=== PATIENT | female | born 1980 | race Caucasian/White ===

== ENCOUNTER 2018-01-24 12:13 | Emergency (ER) | payer BC, SELFPAY ==
[2018-01-24 12:15] VITALS: BP 158/69; PULSE 80; RESP 17; TEMP 36.5; O2SAT 100; BMI 41.0
--- NOTE | 2018-01-24 12:27 | ED.VISSUMM ---
- ER Visit Summary Date of Service: 01/24/18 Chief Complaint: Patient's, chest pain, nonproductive cough etc. History of Present Illness: The patient is a 37 F who presents with acute viral-like symptoms that started 3 days ago. She denies headache. Denies photophobia or eye pain. Denies neck pain or stiffness. She does complain of mild sore throat and nasal congestion with postnasal drainage. She does have a cough which is nonproductive. She is a smoker. She does complain of palpitations and intermittent chest pain with coughing. She denies nausea, vomiting diarrhea. She denies dysuria, frequency, urgency hematuria. She denies leg pain, swelling discoloration. Please see written note for complete detail. Physical Examination: Next field blood pressure is elevated 158/69. She is not febrile nor is she hypoxic. She appears in no distress. Head is atraumatic nor cephalic. Pupils equal round reactive. TMs are normal. Nares patent with nasal congestion. Posterior pharynx with mild erythema. Trach is midline. Is no stridor. No cervical lymphadenopathy. Heart is regular without murmur, gallop or rub. S1 and S2 are normal. Lungs are clear to auscultation with good movement of air bilaterally. Abdomen minimal tenderness. Lower extremity exam is unremarkable: There is no asymmetry, swelling, discoloration, leg vein distention, palpable cords or tenderness along the distribution of the deep venous system. Emergency Department Course and Treatment: Patient was told he has an upper respiratory infection. These are caused from viruses; therefore, antibiotics are not indicated. She was told since she is a smoker she may have a cough up to 4 weeks. Treatment Plan: Symptomatic Disposition: Discharge to home with appropriate home-going instructions Impression: Acute viral upper respiratory infection This note was generated with CR2 dictation software. It may contain incorrect words, spelling, and punctuation that were not noted in review of the chart prior to signing ED Disposition - Plan for ED Patient: Disposition: Home or Assisted Living Chief Complaint: Cough Instructions: ED URI Viral Referrals: Parker Cummings III, MD [Primary Care Provider] - 10-14 Days if not better
[2018-01-24 12:28] VITALS: O2SAT 99
--- NOTE | 2018-01-24 12:33 | ED.DCSUM_ITS ---
- ER Visit Summary Date of Service: 01/24/18 Chief Complaint: Patient's, chest pain, nonproductive cough etc. History of Present Illness: The patient is a 37 F who presents with acute viral- like symptoms that started 3 days ago. She denies headache. Denies photophobia or eye pain. Denies neck pain or stiffness. She does complain of mild sore throat and nasal congestion with postnasal drainage. She does have a cough which is nonproductive. She is a smoker. She does complain of palpitations and intermittent chest pain with coughing. She denies nausea, vomiting diarrhea. She denies dysuria, frequency, urgency hematuria. She denies leg pain, swelling discoloration. Please see written note for complete detail. Physical Examination: Next field blood pressure is elevated 158/69. She is not febrile nor is she hypoxic. She appears in no distress. Head is atraumatic nor cephalic. Pupils equal round reactive. TMs are normal. Nares patent with nasal congestion. Posterior pharynx with mild erythema. Trach is midline. Is no stridor. No cervical lymphadenopathy. Heart is regular without murmur, gallop or rub. S1 and S2 are normal. Lungs are clear to auscultation with good movement of air bilaterally. Abdomen minimal tenderness. Lower extremity exam is unremarkable: There is no asymmetry, swelling, discoloration, leg vein distention, palpable cords or tenderness along the distribution of the deep venous system. Emergency Department Course and Treatment: Patient was told he has an upper respiratory infection. These are caused from viruses; therefore, antibiotics are not indicated. She was told since she is a smoker she may have a cough up to 4 weeks. Treatment Plan: Symptomatic Disposition: Discharge to home with appropriate home-going instructions Impression: Acute viral upper respiratory infection This note was generated with Withings dictation software. It may contain incorrect words, spelling, and punctuation that were not noted in review of the chart prior to signing ED Disposition - Plan for ED Patient: Disposition: Home or Assisted Living Chief Complaint: Cough Instructions: ED URI Viral Referrals: Parker Cummings III, MD [Primary Care Provider] - 10-14 Days if not better
[2018-01-24 12:41] VITALS: BP 138/72; PULSE 71; RESP 16; O2SAT 99
== END 2018-01-24 12:44 | disposition home or self-care (01) ==
LOC: ED 12:42
PROVIDERS: Emergency Provider Emergency Medicine; Family Provider Family Medicine; PCP Family Medicine
DX: J06.9 Acute upper respiratory infection, unspecified (principal); R03.0 Elevated blood-pressure reading, without diagnosis of hypertension; E66.9 Obesity, unspecified; F17.200 Nicotine dependence, unspecified, uncomplicated
CPT/HCPCS: 99282

== ENCOUNTER → 2018-02-02 08:26 | Outpatient (CLI) | payer BC, SELFPAY | PROVIDERS: Family Provider Family Medicine; PCP Family Medicine; Visit Provider Nurse Practitioner | DX: R00.2 Palpitations (principal) | CPT/HCPCS: 93225; 93226 ==

== ENCOUNTER → 2021-02-03 08:57 | Outpatient (CLI) | payer BC, SELFPAY ==
[2021-01-27 11:05] VITALS: BMI 40.5
--- NOTE | 2021-02-03 08:59 | US_ITS ---
STUDY: ULTRASOUND BREAST - LEFT REASON FOR EXAM: Female, 40 years old. Palpable lump left breast. TECHNIQUE: Axial and longitudinal images of the LEFT breast were performed with a high resolution ultrasound transducer. # OF IMAGES: 24 COMPARISON: Comparison is made with prior mammogram done earlier in the day. FINDINGS: LEFT Breast: The inferior aspect of the left breast was examined by ultrasound. No palpable lump is felt at this time. No sonographic abnormality is seen. US/Breast Limited Unilateral IMPRESSION: No sonographic abnormality is seen. ASSESSMENT CATEGORY: BIRADS Category 1: Negative. A letter regarding these results will be sent to the patient by the facility within 30 days. Electronically Signed: Eduar Raya MD at 13:23 EDT , Service support ,
--- NOTE | 2021-02-03 08:59 | BI_ITS ---
MAMMOGRAPHY - BILATERAL DIAGNOSTIC REASON FOR EXAM: Female, 40 years old. 2 week history of left breast lump. PERTINENT HISTORY: Grandmother with breast cancer. TECHNIQUE: Digital bilateral breast sarah (3D mammographic acquisition) in the CC and MLO projections. 2-D mediolateral oblique (MLO) and craniocaudad (CC) views of both breasts were obtained. CAD: Full Field Digital Mammography with Computer Added Detection was performed. COMPARISON: None. Baseline examination. FINDINGS: Breast Composition: The breasts are heterogeneously dense, which may obscure small masses. There are no dominant masses or suspicious calcifications. There is asymmetry of breast tissue were more breast tissue is seen in the retroareolar region of the left breast as compared to the right side. With the patient''s history of a palpable lump, correlation with ultrasound is recommended. No other significant abnormalities are identified. BI/DIAG MAMM W/CAD, BILAT IMPRESSION: Negative diagnostic mammogram. Asymmetry of breast tissue were more breast tissue is seen in the left breast as compared to the right side. Correlation with ultrasound is recommended. ASSESSMENT CATEGORY: BIRADS Category 0: Incomplete. Need additional imaging evaluation. A letter regarding these results will be sent to the patient by the facility within 30 days. Approximately 10% of breast cancers are not detected by mammography. A normal mammogram should not delay biopsy of a clinically suspicious abnormality. Electronically Signed: Eduar Raya MD at 10:17 EDT , Service support ,
== END ==
LOC: OPBI 08:58
PROVIDERS: PCP Family Medicine; Referring Provider Nurse Practitioner Women's Health; Visit Provider Nurse Practitioner Women's Health
DX: N63.20 Unspecified lump in the left breast, unspecified quadrant (principal); Z80.3 Family history of malignant neoplasm of breast
CPT/HCPCS: 76642; 77066

== ENCOUNTER → 2021-02-11 | Outpatient (CLI) | payer BC, SELFPAY ==
[2021-02-11 08:03] VITALS: BMI 40.5
[2021-02-16 12:29] LABS: HPV APTIMA, High Risk Negative (Negative)
== END | disposition home or self-care (01) ==
LOC: LABSPEC 12:19
PROVIDERS: PCP Family Medicine; Referring Provider Nurse Practitioner Women's Health; Visit Provider Nurse Practitioner Women's Health
DX: Z12.4 Encounter for screening for malignant neoplasm of cervix (principal)
CPT/HCPCS: 87624; 88175; G0145

== ENCOUNTER → 2022-02-05 | Outpatient (CLI) | payer BC, SELFPAY ==
[2022-02-05 11:33] LABS: Absolute Lymphocyte Count 2.29 X10^3/uL (0.83-4.51); Basophil# 0.08 X10^3/uL; Basophil% 0.8 % (0-1); Hematocrit 38.7 % (37-47); Hemoglobin 12.6 g/dL (12.0-15.0); Lymphocyte # 2.29 X10^3/ul (0.83-4.51); Lymphocyte % 22.5 % (19-41); Mean Corp Hgb Conc 32.6 g/dL (32-36); Mean Corpuscular Hgb 29.4 pg (27.0-32.0); Mean Corpuscular Volume 90.4 fL (81-99); Mean Platelet Vol. 9.9 fl (6.2-12.0); Monocyte# 0.57 X10^3/uL; Monocyte% 5.6 % (0-10); NRBC Flagged by Analyzer 0 % (0-5); Neutrophil # 6.98 X10^3/uL (2.7-7.7); Neutrophil % 68.6 % (47-70); Platelet Count 323 K/mm3 (150-450); RBC Distribution Width CV 13.6 % (11.6-14.6); RBC Distribution Width SD 44.9 fl (35.1-43.9); Red Blood Count 4.28 M/mm3 (4.2-5.4); White Blood Count 10.2 K/mm3 (4.4-11.0)
[2022-02-05 12:06] LABS: Thyroid Stim Hormone (TSH) 1.57 uIU/mL (0.358-3.74)
== END | disposition home or self-care (01) ==
LOC: PAVLAB 11:16
PROVIDERS: Referring Provider Nurse Practitioner Women's Health; Visit Provider Nurse Practitioner Women's Health
DX: N93.9 Abnormal uterine and vaginal bleeding, unspecified (principal); Z13.29 Encounter for screening for other suspected endocrine disorder
CPT/HCPCS: 36415; 84443; 85025

== ENCOUNTER → 2022-02-12 | Outpatient (CLI) | payer BC, SELFPAY ==
--- NOTE | 2022-02-12 07:52 | BI_ITS ---
MAMMOGRAPHY - BILATERAL SCREENING REASON FOR EXAM: Female, 41 years old. Routine annual screening examination. PERTINENT HISTORY: Grandmother with breast cancer. TECHNIQUE: Digital bilateral breast mark (3D mammographic acquisition) in the CC and MLO projections. 2-D mediolateral oblique (MLO) and craniocaudad (CC) views of both breasts were obtained. CAD: Full Field Digital Mammography with Computer Added Detection was performed. COMPARISON: Comparison is made with prior study dated 02/03/2021. FINDINGS: Breast Composition: The breasts are heterogeneously dense, which may obscure small masses. There are no dominant masses or suspicious calcifications. Stable asymmetry of breast tissue with more breast tissue is seen in the retroareolar region of the left breast as compared to the right side. No other significant abnormalities are identified. There has been no significant change since the prior study. BI/SCRN MAMM (CAD)W/MARK BILAT IMPRESSION: Stable bilateral screening mammogram. Yearly follow-up mammogram recommended. (A) ASSESSMENT CATEGORY: BIRADS Category 2: Benign. A letter regarding these results will be sent to the patient by the facility within 30 days. Approximately 10% of breast cancers are not detected by mammography. A normal mammogram should not delay biopsy of a clinically suspicious abnormality. [id number] Electronically Signed: Eduar Raya MD at 8:53 EDT ,
--- NOTE | 2022-02-12 07:52 | US_ITS ---
STUDY: ULTRASOUND TRANSVAGINAL CLINICAL: Female, 41 years old. aub TECHNIQUE: Transvaginal COMPARISON: None. FINDINGS: Normal uterine size measuring 8.8 cm in maximal craniocaudal dimension. There are no myometrial masses. Normal endometrial thickness measuring 1.32 cm. There are no endometrial masses, and there is no fluid in the endometrial cavity. Normal uterine cervix. There is a cyst measuring 1.80 cm Normal right ovary, measuring cm. There are multiple follicles without a dominant cyst. Normal left ovary, measuring cm. There are multiple follicles without a dominant cyst. There is no free fluid in the pelvis. Polycystic ovary disease: No. US/Transvaginal Non- IMPRESSION: No acute findings. Electronically Signed: Jerson Peoples MD at 0:01 EDT ,
== END | disposition home or self-care (01) ==
PROVIDERS: Visit Provider Nurse Practitioner Women's Health
DX: Z12.31 Encounter for screening mammogram for malignant neoplasm of breast (principal); N93.9 Abnormal uterine and vaginal bleeding, unspecified
CPT/HCPCS: 76830; 77063; 77067

== ENCOUNTER → 2022-07-23 | Outpatient (CLI) | payer BC, SELFPAY ==
--- NOTE | 2022-07-23 12:48 | VDLE_ITS ---
Reason For Study: LEG PAIN AND SWELLING RIGHT LEFT CFV is compressible, spontaneous, phasic, GSV appears non-compressible with competent and demonstrates normal intraluminal echoes. No flow noted in color augmentation. or pulsed wave doppler. S/P EVLA procedure. Procedure CFV is compressible, spontaneous, phasic, This is a venous duplex using B-mode, color competent, and demonstrates normal flow and spectral Doppler. augmentation. Exam performed in department. FV is compressible, spontaneous, phasic, The exam was diagnostic. competent and demonstrates normal A preliminary report was called and/or faxed augmentation. to Dr. Rodríguez. POP V is compressible, spontaneous, phasic, competent and demonstrates normal augmentation. T/P Trunk is compressible. PTV is compressible. LT PerV is compressible. VL/Venous Duplex US, Unilateral Interpretation Summary Deep veins of the left lower extremity are patent and compressible segmentally. There is no evidence of left lower extremity deep vein thrombosis. Valvular competence appears intac t within the proximal deep venous system on the left . The left great saphenous vein is occluded and non-compressible, consistent with a recent endothermal ablation procedure. Ordering Physician: Mickey Rodríguez Referring Physician: Mickey Rodríguez Performed By: Korey Mondragon, RVT
== END | disposition home or self-care (01) ==
LOC: CVS 12:47
PROVIDERS: Referring Provider Surgery; Visit Provider Surgery
DX: M79.602 Pain in left arm (principal)
CPT/HCPCS: 93971

== ENCOUNTER → 2022-11-03 | Outpatient (CLI) | payer BC, SELFPAY | END | disposition home or self-care (01) | LOC: LABSPEC 14:28 | PROVIDERS: Visit Provider Obstetrics & Gynecology | DX: N93.9 Abnormal uterine and vaginal bleeding, unspecified (principal) ==

== ENCOUNTER → 2022-11-04 | Outpatient (CLI) | payer BC, SELFPAY ==
--- NOTE | 2022-11-03 | EMB_PTH ---
PATIENT: MAYDA CRAIG LOC: [facility]#:[id number] AGE/SX: 41/F ROOM: RE11/04/[address]: Dr. Carley Javed DO : 1980 BED: DIS: 11/04/2022 SPEC #: [id number] RECD: 11/03/22 14:23 STATUS: SOFIA SEEMA #: [id number] NICOLAS: 11/03/22 00:[address]: Carley Javed DEPT: SURGICAL PATHOLOGY RECD BY: Ed Jose ENTERED: 11/04/22 11:02 SP TYPE: ENDOM BX/C HERBERT DR: No Primary Care Phys Tissues: Endometrium, NOS Procedures: Surgery Specimen Level IV HEADER OPERATION: Endometrial biopsy PRE-OP DIAGNOSIS: Abnormal uterine bleeding TISSUE SUBMITTED: Endometrial lining MICROSCOPIC DIAGNOSIS Endometrium, biopsy: Secretory endometrium. AM:yolanda 11/05/2022 MICROSCOPIC DESCRIPTION Slides are reviewed. GROSS DESCRIPTION Received is one container labeled with the patient's name and not further designated. The specimen consists of multiple irregular fragments of jay soft tissue that in aggregate measure 2.5 x 2 x 0.2 cm. The specimen is totally submitted in one cassette. / SJ:yolanda 11/04/2022 TC:5 CPT: 95249
[2022-11-04 10:54] LABS: Absolute Lymphocyte Count 2.31 X10^3/uL (0.83-4.51); Absolute Neutrophil Count 6.6 X10^3/uL (2.0-7.7); Basophil# 0.05 X10^3/uL; Basophil% 0.5 % (0-1); Hematocrit 35.3 % (37-47); Hemoglobin 10.6 g/dL (12.0-15.0); Lymphocyte # 2.31 X10^3/ul (0.83-4.51); Lymphocyte % 23.6 % (19-41); Mean Corpuscular Hgb 24.8 pg (27.0-32.0); Mean Corpuscular Volume 82.7 fL (81-99); Mean Platelet Vol. 9.3 fl (6.2-12.0); Monocyte# 0.62 X10^3/uL; Monocyte% 6.3 % (0-10); NRBC Flagged by Analyzer 0 % (0-5); Neutrophil # 6.56 X10^3/uL (2.7-7.7); Neutrophil % 67.1 % (47-70); Platelet Count 380 K/mm3 (150-450); RBC Distribution Width CV 14.2 % (11.6-14.6); Red Blood Count 4.27 M/mm3 (4.2-5.4); White Blood Count 9.8 K/mm3 (4.4-11.0)
== END | disposition home or self-care (01) ==
LOC: PAVLAB 10:40
PROVIDERS: Referring Provider Obstetrics & Gynecology; Visit Provider Obstetrics & Gynecology
DX: N93.9 Abnormal uterine and vaginal bleeding, unspecified (principal)
CPT/HCPCS: 36415; 85025; 88305

== ENCOUNTER → 2022-12-16 | Outpatient (CLI) | payer BC, SELFPAY | END | disposition home or self-care (01) | PROVIDERS: Referring Provider Obstetrics & Gynecology; Visit Provider Obstetrics & Gynecology | DX: Z01.818 Encounter for other preprocedural examination (principal); R30.0 Dysuria | CPT/HCPCS: 36415; 83735; 85027; 86850; 86900; 86901; 87086; 87088 ==

== ENCOUNTER 2022-12-28 09:34 | Day surgery (SDC) | payer BC, SELFPAY ==
[2022-12-16 11:28] LABS: Hematocrit 36.8 % (37-47); Hemoglobin 11.2 g/dL (12.0-15.0); Mean Corp Hgb Conc 30.4 g/dL (32-36); Mean Corpuscular Hgb 23.6 pg (27.0-32.0); Mean Corpuscular Volume 77.5 fL (81-99); Mean Platelet Vol. 9.4 fl (6.2-12.0); Platelet Count 397 K/mm3 (150-450); RBC Distribution Width CV 15.6 % (11.6-14.6); RBC Distribution Width SD 43.4 fl (35.1-43.9); Red Blood Count 4.75 M/mm3 (4.2-5.4); White Blood Count 9.2 K/mm3 (4.4-11.0)
[2022-12-16 11:46] LABS: Magnesium 2.1 mg/dL (1.6-2.6)
[2022-12-28] VITALS (8 sets, daily range): BP systolic 116–153; BP diastolic 62–89; PULSE 60–79; RESP 14–28; TEMP 36.4–37.1; O2SAT 99–100; BMI 42.3
[2022-12-28] MEDS: Lactated Ringers 1,000 ML 40 ML IV (10:00)
--- NOTE | 2022-12-28 10:03 | PCM.HP.BLA ---
History and Physical Date of Admission: 12/28/22 Intake Vital Signs ? 12/08/2307:00 12/08/2307:07 Height 5 ft 4 in 5 ft 4 in Weight: 242 lb ? BMI 41.5 ? BP 125/71 H ? Intake Visit Reasons:?pre-op Clothing Examiner Required: No Is patient in pain?: No Allergies No Known Allergies Allergy (Verified 12/07/22 08:06) Medications NK? 11/03/22 [History Confirmed 12/07/22] Post menopausal: No Patient : No : No [facility] Medical History? History of femur fracture Surgical History? History of endometrial ablation History of salpingectomy History of surgery on arm History of tubal ligation Family History? Mother Diabetes HypertensionGrandmother Breast cancer Hypertension Social History? household members:? spouse and children number of children:? 3 current occupational status:? employed current occupation:? [employer] history of recent travel:? No sexually active:? Yes Smoking Status:? Current every day smoker alcohol intake:? never substance use type:? does not use what type of physical activity do you participate in:? walking frequency:? 3-4 times per week seatbelt use:? always do you feel safe at home:? Yes additional social history:? - Sam REYNAGA pre-op Details: MAYDA CRAIG is a 42 year old who presents for a pre-op exam. She is a? who presents for discussion about heavy menses. She has recently completed a course of aygestin and bleeding has stopped x 3 days. She states that typically She will bleed clots and at times will last up to 4 weeks on end. in 12 months I have bled 7 months straight. She complains of fatigue often. She has a history of uterine ablation that did not work when she was 32 years old. She also had an essure procedure followed by salpingectomy for pain with Dr. Duenas at [facility]. She is now interested in hysterectomy. her children were all born vaginally. ultrasound shows an 8 cm uterus with a 1.5 cm lining. We have discussed treatment options and she would like to proceed with hysterectomy at this time. History ? ? ? 3 ? Elective abortions ? Hx Para ? ? ? 3 ? Spontaneous abortions ? Hx # Term Pregnancies ? Ectopic pregnancies ? Hx # Pregnancies ? Multiple births ? # of living children ? ? ? 3 Past Pregnancies Del. Date Name GA/Weeks Outcome Route Bth Weight Infant Gen Labor Lgth Anesthesia Del Locatn Provider FOB Unknown Mariam ? 2003 ? Unknown Andrew? 2005 ? Unknown Rashel? 2012 ? ROS Const ROS Unobtainable: All systems reviewed & are unremarkable except as noted in H Resp Resp: Reports system reviewed and no additional complaints, except as documented; Denies cough GI GI: Reports as per HPI Psych Psych: Reports system reviewed and no additional complaints, except as documented Exam Const General: cooperative, healthy appearing, comfortable and no acute distress Resp Effort & Inspection: normal respiratory effort Skin General: no rashes or lesions noted Psych Appearance: grossly normal Speech and Movement: speech and movement normal Coding Level of Care Code Off vis,est,level 4 Diagnoses Abnormal uterine bleeding (AUB)? N93.9 History of tubal ligation? Z98.51 Varicose veins of both lower extremities? I83.93 Superficial thrombophlebitis? I80.9 Assessment and Plan Assessment and Plan (1) Abnormal uterine bleeding (AUB): ?Status:?Acute ?Comment: labs/US WNL. failed IUD; failed ablation. Failed aygestin and eliane. JV appt to discuss hysterectomy ?Plan: After discussing the patient's diagnosis and treatment plan options, patient wishes to proceed with surgical management. We will proceed with a robotic approach to minimize complications due to central obesity and lack of uterine descent. ? I have discussed with the patient the risks, benefits, and alternatives of the procedure which include but are not limited to risks of anesthesia, bleeding, infection, possible damage to bowel, bladder, or surrounding vasculature which could lead to additional surgery to evaluate any complications.? Patient agrees to procedure and wishes to proceed.? ACOG/uptodate references given for additional information regarding procedure.? (2) History of tubal ligation: ?Status:?Acute (3) Varicose veins of both lower extremities: ?Status:?Acute (4) Superficial thrombophlebitis: ?Status:?Acute
[2022-12-28] MEDS: Magnesium 1 GM over 15 mins IV (10:10)
[2022-12-28] MEDS: dexAMETHasone 10 MG/ML Vial 8 MG IV (10:15)
[2022-12-28] MEDS: Celecoxib 200 MG Capsule 400 MG PO (10:16)
[2022-12-28] MEDS: Acetaminophen 500 MG Tablet 1000 MG PO (10:17)
[2022-12-28] MEDS: Phenazopyridine 95 MG Tablet 190 MG PO (10:17)
[2022-12-28] MEDS: Gabapentin 600 MG Tablet PO (10:17)
[2022-12-28 10:30] LABS: Bedside Glucose 92 mg/dL (74-106)
--- NOTE | 2022-12-28 11:40 | HYST_PTH ---
PATIENT: MAYDA CRAIG LOC: [facility] U#:[id number] AGE/SX: 42/F ROOM: RE12/28/[address]: Dr. Carley Javed DO : 1980 BED: DIS: 12/28/2022 SPEC #: [id number] RECD: 12/28/22 16:32 STATUS: SOFIA [place] #: [id number] NICOLAS: 12/28/22 11:[address]: Carley Javed DEPT: SURGICAL PATHOLOGY RECD BY: Laura Hart ENTERED: 12/29/22 09:20 SP TYPE: HYSTERECT OT DR: No Primary Care Phys Tissues: Uterus, NOS Procedures: Surgery Specimen Level V HEADER OPERATION: ERAS, lap robotic hysterectomy, cystoscopy PRE-OP DIAGNOSIS: Abnormal uterine bleeding TISSUE SUBMITTED: Uterus and cervix MICROSCOPIC DIAGNOSIS Uterus, hysterectomy: Cervix ? nabothian cysts, squamous metaplasia and mild chronic inflammation. Endometrium ? proliferative endometrium. Myometrium ? focal superficial adenomyosis. AM:yolanda 12/30/2022 MICROSCOPIC DESCRIPTION Slides are reviewed. GROSS DESCRIPTION Received in fixative is one container labeled with the patient's name and designated uterus and cervix. The specimen consists of a hysterectomy specimen consisting of uterus with cervix weighing 115 gm and measuring 9.0 x 6.0 x 4.5 cm. The serosal surface is jay, glistening. The ectocervical mucosa is unremarkable. The external os is oval and patulous in contour. The endocervical canal measures 3.0 cm in length and the endocervical mucosa is jay, glistening and unremarkable. Sections of the cervix reveal multiple cysts filled with jay, mucoid material. The triangular endometrial cavity measures 4.0 cm in length and up to 2.0 cm in width. The endometrium is jay, glistening without any mass lesion and measures up to 0.2 cm in thickness. Sections of the uterine wall do not reveal any mass lesion and measures up to 2.5 cm in thickness. [employer] sections are submitted in six cassettes as follows: 1?- anterior cervix, 2 - posterior cervix, 3 & 4 - anterior uterine wall, 5 & 6 - posterior uterine wall. / SJ:yolanda 12/29/2022 TC:5 CPT: 13171
--- NOTE | 2022-12-28 12:34 | DCINST_ITS ---
Discharge Instructions Diet Discharge Diet: No restrictions Activity May resume sexual activity in: 6 weeks Weight Bearing Status: Full weight bearing Dressing / Incision Call your doctor if your incision/area has: Continuous Slow Oozing, Sudden Increased Bleeding, Increased Pain/ Swelling, Increased Redness and Foul Smelling Discharge Call your doctor if you observe: Fever of 101 or Higher, Using more than 1 pad per hour, Shortness of breath, Chest pain and Uncontrolled pain Suture Line Care: Avoid Pulling/Pushing and Avoid Pinching/Bending Remove Dressing in: 1 week (if present) Cleanse incision/area with: Soap & Water and Keep Dressing Clean & Dry Follow Up Care Please Follow Up With: Carley Javed DO When: Call to make an appointment with your doctor for a postop visit in 2 and 6 weeks Test Results: Test results from this visit will be discussed in further detail at your follow- up appointment, if applicable. Discharge Plan Admission Primary Reason for Your Visit: hysterectomy Attending Provider: Carley Javed Primary Care Provider: Care Physician,Kristen Primary Discharge Orders/Prescriptions Prescriptions: New oxycodone-acetaminophen [Percocet] 5-325 mg tablet 1 tab PO Q4H PRN (Reason: pain) 7 Days Qty: 30 0RF Rx Instructions: 1-2 tabs q 4 hrs as needed for pain naproxen 500 mg tablet 500 mg PO BID PRN (Reason: pain) Qty: 30 0RF Referrals / Follow Up: Care Physician,No Primary [Primary Care Provider] - Disposition Disposition (needs filled in before D/C Order can be placed): Home, Self Care
[2022-12-28] MEDS: Cefazolin 2 GM in 0.9% Normal Saline 100 ML IV (14:00)
[2022-12-28] MEDS: Ondansetron 4 MG/2 ML Vial IV (14:32)
[2022-12-28] MEDS: Bupivacaine 0.25% 30 ML Vial (15:00)
--- NOTE | 2022-12-28 15:58 | PCM.OP.BLANK ---
Problems Associated Problem List Diagnoses (1) Abnormal uterine bleeding (AUB): Operative Report Date of Procedure: 12/28/22 Preoperative diagnosis:pelvic pain, menorrhagia, obesity Postoperative diagnosis: pelvic pain, menorrhagia, obesity Procedure: Total robotic hysterectomy and cystoscopy Surgeon: Dr. Carley Javed DO Assistant Product Manager: Janay DE LEON, Ross DE LEON Anesthesia: General endotracheal intubation Estimated blood loss: 30cc Urine output:200cc Drains: None Implanted material: None Complications: None Findings: 10 cm size uterus, normal appearing ovaries and tubes. On exploration of the abdominal cavity the uterus, adnexa, bowel, and liver were found to be normal with exception of endometriosis on the left ovary, which was adherent to the posterior uterine wall. There was also presence of a right essure coil Cystoscopy showed no evidence of leaking at approximately 250 cc of normal saline, positive ureteral orifices and jet flow are seen and no suture material was appreciated in the bladder. Specimens removed: Uterus and cervix Reason for surgery: This is a 42-year-old G3, P3 who presented to my office with history of pelvic pain and menorrhagia. She has failed many conservative measures. The planned procedure is for a robotic hysterectomy the risks benefits and alternatives were discussed with the patient the patient had a clear understanding of the procedure and a consent form was signed. Procedure: The patient was placed in the dorsal low lithotomy position and prepped and draped in the normal sterile fashion both abdominally and in the perineum. Her legs were placed in stirrups a Tamez catheter was inserted into the urethra without difficulty. A weighted speculum was placed in the vagina and a single-tooth tenaculum was used to grasp the anterior lip of the cervix. An Advincula uterine manipulator was inserted through the cervix without complication. It was then tied into place at the 2 and 10:00 locations on the cervix. Gloves were changed and attention was turned towards the abdomen. Approximately 23 cm above the pubic symphysis in the midline, and after Marcaine injection, a 8 mm incision was made. An 8 mm trocar was inserted through the laparoscope, then inserted into the abdomen under direct visualization using the laparoscope. Good abdominal placement was noted and no complications were appreciated. An air seal device was utilized to create pneumoperitoneum. At 12 cm lateral to the midline on the left and right sides 8 mm accessory ports were placed. Next a left upper quadrant 8 mm commissary assistant port site was placed. The patient was placed in steep Trendelenburg position. The robot was docked. The hysterectomy was initiated first by taking down the round ligament on each side using the vessel sealer device. The broad ligament was then and taken down using the vessel sealer device. The left ovary was bluntly and sharply dissected off the posterior uterine wall. Next the bladder flap was taken down without complication. This was done using monopolar cautery to the level of the cervical vaginal junction. After the bladder flap was created, uterine vessels were then isolated and cauterized using the vessel sealer device and EndoShears. At this point the uterine vessels were taken down further starting from the ascending branch, dissecting along the edges of the cervix to the level of the cervical vaginal junction with hemostasis appreciated. The cervical vaginal junction was then using monopolar cautery in a circumferential pattern across the superior aspect of the cervix. The specimen was delivered through the vagina and sent to pathology. The remaining vaginal cuff was then closed using a V- lock suture. This was performed in a running technique. Excellent hemostasis was obtained and good closure was noted. Irrigation was then performed. All operative sites were noted to be hemostatic. A cystoscopy was performed with a 70 degree cystoscope through the urethra into the bladder without complication. The bladder was instilled with approximately 250 cc of normal saline. Intraoperative images were made. Ureteral orifices and jets were identified. No suture material was appreciated in the bladder. The bladder was then drained and cystoscope was removed. The abdominal cavity was again examined using the laparoscope after the robot was undocked. All operative sites were noted to be hemostatic. The trochars were removed under direct visualization without complication and pneumoperitoneum was reduced. At this point the skin was then closed using 4-0 Monocryl subcuticular stitch and sealed with surgical glue. The patient tolerated the procedure well sponge lap and needle counts were correct x2 the patient was taken to the recovery room in stable condition. Multi Select Codes Urinary/Genital Urinary/Genital CPT Codes: 64641 Cystoscopy and 77730 TLH <250gr uterus
[2022-12-28] MEDS: HYDROcodone Bitartrate/Apap 5/325 Tablet PO (17:27)
== END 2022-12-28 18:44 | disposition home or self-care (01) ==
LOC: SDC 09:34 → AC 09:35
PROVIDERS: Anesthesiology; Referring Provider Obstetrics & Gynecology; Visit Provider Obstetrics & Gynecology
PROC: 0UT94ZZ Resection of Uterus, Percutaneous Endoscopic Approach (ICD-10-PCS; CPT 58570; principal; 2022-12-28 11:20)
DX: N80.03 Adenomyosis of the uterus (principal); Z68.41 Body mass index [BMI] 40.0-44.9, adult; N80.102 Endometriosis of left ovary, unspecified depth; N71.1 Chronic inflammatory disease of uterus; N88.8 Other specified noninflammatory disorders of cervix uteri; N87.9 Dysplasia of cervix uteri, unspecified; E66.9 Obesity, unspecified; F17.200 Nicotine dependence, unspecified, uncomplicated; Z98.51 Tubal ligation status
CPT/HCPCS: 58570; S2900; 00840; 36415; 82962; 83735; 85027; 86850; 86900; 86901; 87086; 87088; 88307; J7120; J2405; J3475

== ENCOUNTER → 2023-07-06 | Outpatient (CLI) | payer OTHER, SELFPAY ==
--- NOTE | 2023-07-06 11:01 | RAD_ITS ---
STUDY: X-RAY - RIGHT FOOT CLINICAL: Female, 42 years old. Nontraumatic pain. TECHNIQUE: 3 view(s) of the foot. COMPARISON: None. FINDINGS: Normal talus, calcaneus, and tarsal bones. Normal visualized subtalar, talonavicular, calcaneocuboid, tarsal and tarsometatarsal articulations. Normal metatarsi. Normal metatarsophalangeal joint of the great toe. Normal tibial and fibular sesamoid bones. Normal interphalangeal joint of the great toe. Normal phalanges of the great toe. Normal second through fifth metatarsophalangeal joints. Normal interphalangeal joints and phalanges of the lesser toes. The soft tissue structures are unremarkable. RAD/Foot min 3 Views IMPRESSION: Normal x-ray examination of the foot. Electronically Signed: Eduar Raya MD at 11:27 EDT ,
--- NOTE | 2023-07-06 11:03 | RAD_ITS ---
STUDY: X-RAY - RIGHT ANKLE REASON FOR EXAM: Female, 42 years old. Nontraumatic pain. TECHNIQUE: 3 view(s) of the ankle. COMPARISON: None. FINDINGS: Normal visualized distal tibia and fibula. Normal medial and lateral malleoli. Normal tibiotalar articulation and ankle mortise. Normal visualized talus and calcaneus. The visualized subtalar, talonavicular, calcaneocuboid and tarsal articulations are normal. The soft tissue structures are unremarkable. RAD/Ankle min 3 Views IMPRESSION: Normal x-ray examination of the ankle. Electronically Signed: Eduar Raya MD at 11:26 EDT ,
== END | disposition home or self-care (01) ==
PROVIDERS: Referring Provider Physician Assistant; Visit Provider Physician Assistant
DX: S99.911A Unspecified injury of right ankle, initial encounter (principal); X58.XXXA Exposure to other specified factors, initial encounter
CPT/HCPCS: 73610; 73630

== ENCOUNTER → 2024-03-01 | Outpatient (CLI) | payer OTHER, SELFPAY | END | disposition home or self-care (01) | LOC: MTRAD 10:32 | PROVIDERS: Referring Provider Chiropractor; Visit Provider Chiropractor | DX: M54.2 Cervicalgia (principal); M99.01 Segmental and somatic dysfunction of cervical region; M99.03 Segmental and somatic dysfunction of lumbar region | CPT/HCPCS: 72040; 72110 ==

== ENCOUNTER → 2025-02-07 | Outpatient (CLI) | payer OTHER, SELFPAY ==
--- NOTE | 2025-02-07 10:48 | BI_ITS ---
EXAM: SCRN MAMM (CAD)W/MARK BILAT DATE: 02/07/2025 CLINICAL HISTORY: F, Age 44 y/o , SCREENING BREAST CANCER RISK ASSESSMENT: Not reported TECHNIQUE: Bilateral screening digital breast tomosynthesis with 2D and 3D images. Computer aided detection. COMPARISON: Prior exam(s) were compared FINDINGS: TISSUE DENSITY: The breast tissue is heterogenously dense, which may obscure small masses. Bilateral Breast Mammographic Findings: No suspicious masses, calcifications or other abnormalities are identified. BI/SCRN MAMM (CAD)W/MARK BILAT IMPRESSION: OVERALL FINAL ASSESSMENT: BIRADS 1 NEGATIVE RECOMMENDATION: Routine annual follow-up in 1 Year A letter with findings and recommendations will be mailed to the patient. Reading Location: [id number]
== END | disposition home or self-care (01) ==
LOC: OPBI 10:47
PROVIDERS: PCP Family Medicine; Referring Provider Family Medicine; Visit Provider Family Medicine
DX: Z12.31 Encounter for screening mammogram for malignant neoplasm of breast (principal)
CPT/HCPCS: 77063; 77067

== ENCOUNTER → 2025-08-20 | Outpatient (CLI) | payer OTHER, SELFPAY ==
[2025-08-20 15:20] LABS: Hematocrit 43.2 % (37-47); Hemoglobin 14.4 g/dL (12.0-15.0); Immature Granulocytes Count 0.060 X10^3/uL (0.0-0.0); Mean Corp Hgb Conc 33.3 g/dL (32-36); Mean Corpuscular Volume 90.2 fL (81-99); Mean Platelet Vol. 10.6 fl (6.2-12.0); NRBC Flagged by Analyzer 0 % (0-5); Platelet Count 308 K/mm3 (150-450); RBC Distribution Width CV 13.5 % (11.6-14.6); RBC Distribution Width SD 44.5 fl (35.1-43.9); Red Blood Count 4.79 M/mm3 (4.2-5.4); White Blood Count 11.0 K/mm3 (4.4-11.0)
[2025-08-20 15:55] LABS: Anion Gap 10 (5-15); BUN 11 mg/dL (4-19); BUN/Creat Ratio 18.4 RATIO (10-20); Calcium,Total 9.1 mg/dL (7.6-11.0); Carbon Dioxide 24.7 mmol/L (21.0-32.0); Chloride 103 mmol/L (98-108); Ferritin 97 ng/mL (22-378); Glucose 85 mg/dL (70-99); Potassium 4.4 mmol/L (3.3-5.1)
== END | disposition home or self-care (01) ==
LOC: BFHLAB 13:26
PROVIDERS: PCP Family Medicine; Visit Provider Family Medicine
DX: R42 Dizziness and giddiness (principal); Z83.3 Family history of diabetes mellitus
CPT/HCPCS: 36415; 80048; 82728; 83036; 84443; 85025